=== PATIENT | male | born 1960 | race Native Hawaiian/Other Pacific Islander ===

== ENCOUNTER 2018-12-12 22:09 | Emergency (ER) | payer OTHER ==
[~2018-12-12] VITALS: Ht 180.3 cm; Wt 63.5 kg
[~2018-12-12 22:09] MED LIST: ALBU8HFA4; AMLO5TAB4; HYDR8TAB2; IRON; OMEP20CA4; PROM25TA15
--- NOTE | 2018-12-12 22:27 | NUR ---
Patient discharged to home in stable conditon. Written and verbal after care instructions given. Patient verbalizes understanding of instructions.
== END 2018-12-12 22:28 | disposition home or self-care (01) ==
LOC: ER 22:09
DX: Z48.01 Encounter for change or removal of surgical wound dressing (principal); L02.416 Cutaneous abscess of left lower limb; G89.29 Other chronic pain; Z88.5 Allergy status to narcotic agent; Z88.8 Allergy status to other drugs, medicaments and biological substances; Z79.899 Other long term (current) drug therapy
CPT/HCPCS: A4663

== ENCOUNTER 2019-03-28 23:56 | Emergency (ER) | payer OTHER ==
[~2019-03-28] VITALS: Ht 180.3 cm; Wt 58.1 kg
[~2019-03-28 23:56] MED LIST changes: -AMLO5TAB4; -HYDR8TAB2; +HYDR8TAB2 PO; -OMEP20CA4; +PROM25TA15 PO
[2019-03-29 00:41] LABS: BASOPHILS # (AUTO) 0.1 K/uL (0.0-8.0); BASOPHILS % (AUTO) 1.4 % (0.0-2.0); EOSINOPHILS # (AUTO) 0.2 K/uL (0.0-0.7); EOSINOPHILS % (AUTO) 3.7 % (0.0-7.0); HEMATOCRIT 30.3 % (36.7-47.1); HEMOGLOBIN 10.2 g/dL (12.5-16.3); LYMPHOCYTES # (AUTO) 1.2 K/uL (20.0-40.0); MEAN CORPUSCULAR HEMOGLOBIN 30.7 uug (23.8-33.4); MEAN CORPUSCULAR HGB CONC 34 g/dL (32.5-36.3); MEAN CORPUSCULAR VOLUME 91.4 fL (73.0-96.2); MONOCYTES # (AUTO) 0.5 K/uL (2.0-10.0); MONOCYTES % (AUTO) 10.2 % (0.0-11.0); NEUTROPHILS # (AUTO) 2.9 K/uL (1.8-8.9); NEUTROPHILS % (AUTO) 59.7 % (38.5-71.5); PLATELET COUNT (AUTO) 185 K/uL (152-348); RED BLOOD CELL COUNT(AUTO) 3.32 MIL/uL (4.06-5.63); WHITE BLOOD COUNT (AUTO) 4.8 K/uL (3.6-10.2)
[2019-03-29 00:47] LABS: *BILIRUBIN,URIN NEGATIVE (NEGATIVE); *CLARITY,URINE CLEAR (CLEAR); *COLOR,URINE YELLOW (YELLOW); *KETONES,URINE NEGATIVE (NEGATIVE); LEUKOCYTE ESTERASE ,URINE NEGATIVE (NEGATIVE); NITRITE, URINE NEGATIVE (NEGATIVE); PH,URINE 8.5 (5.0-8.0); UGLUCOSE NEGATIVE (NEGATIVE)
[2019-03-29 00:49] LABS: CREATININE 1.1 mg/dL (0.6-1.3); POTASSIUM 4.4 mmol/L (3.5-5.1)
[2019-03-29 00:53] LABS: *BLOOD, URINE TRACE (NEGATIVE)
[2019-03-29 00:56] LABS: BACTERIA,URINE NONE SEEN /HPF (NONE SEEN); SQUAMOUS EPITHELIAL CELL,UR FEW /HPF (NONE SEEN); WBC,URINE 0-3 /HPF (0-3)
[2019-03-29 01:01] LABS: BILIRUBIN,DIRECT 0.2 mg/dL (0.0-0.2); BILIRUBIN,TOTAL 0.4 mg/dL (0.2-1.0); TOTAL PROTEIN, SERUM 6.1 g/dL (6.4-8.2)
[2019-03-29] MEDS ORDERED: CALCIUM GLUCONATE 1 GM/10 ML VIAL IV ONE (01:22)
[2019-03-29] MEDS ORDERED: FUROSEMIDE 40 MG/4 ML VIAL ONE (01:22)
[2019-03-29] MEDS ORDERED: FUROSEMIDE 20 MG/2 ML VIAL IV ONE (01:30)
[2019-03-29] MEDS ORDERED: CALCIUM GLUCONATE IV 1 GM in IV DEXTROSE 5% 50 ML IV ONE (01:30)
--- NOTE | 2019-03-29 02:00 | NUR ---
Calcium Gluconate infusion finished at 0200. Medication infused well with no signs of infiltration.
--- NOTE | 2019-03-29 02:20 | NUR ---
Patient discharged to home in stable conditon. Written and verbal after care instructions given. Patient verbalizes understanding of instructions.
== END 2019-03-29 02:21 | disposition home or self-care (01) ==
LOC: ER 23:58
DX: R60.9 Edema, unspecified (principal); Z88.5 Allergy status to narcotic agent; Z88.8 Allergy status to other drugs, medicaments and biological substances; Z79.899 Other long term (current) drug therapy
CPT/HCPCS: 36415; 71045; 80048; 80076; 81001; 83880; 84484; 85025; 85730; 93005; 96365; 96375; 99284; J0610; J1940; J7060; 70030-TC; A4663

== ENCOUNTER 2021-07-13 14:44 | Inpatient (IN) | payer OTHER ==
[~2021-07-13] VITALS: Ht 172.7 cm; Wt 40.8 kg
[2021-07-13] MEDS ORDERED: LOPRESSOR (14:56)
[2021-07-13] MEDS ORDERED: METHADONE (14:56)
[2021-07-13] MEDS ORDERED: NEOMY/BACITRA/POLYMYXIN B OINT UD PACKET TP ONE ×2 (15:00→17:48)
[2021-07-13] MEDS ORDERED: IV NORMAL SALINE 1000 ML BAG IV ONE (15:00)
[2021-07-13] MEDS ORDERED: TDAP DIPH,PERTUSS,TET VAC/PF 0.5 ML DISP.SYRIN IM ONE ×2 (15:00→16:22)
[2021-07-13] MEDS ORDERED: DEXTROSE 50% 50 ML DISP.SYRIN IV ONE (15:15)
[2021-07-13 15:40] LABS: HEMATOCRIT 28.8 % (36.7-47.1); MEAN CORPUSCULAR HEMOGLOBIN 31.7 uug (23.8-33.4); MEAN CORPUSCULAR VOLUME 97.1 fL (73.0-96.2); PLATELET COUNT (AUTO) 152 K/uL (152-348)
--- NOTE | 2021-07-13 15:51 | NUR ---
CELESTE ROSALES, PT'S GRUPO, CALLED AND SAID THAT SHE WAS TRYING TO REACH HER FATHER EARLIER AND HE WOULDNT DELTA SYSTEM FREIGHT CAR CLEANER THE PHONE, SO SHE KNEW SOMETHING WAS WRONG, SHE CALLED THE COMMERCIAL MANAGER WHO CALLED [employer] AND THEY GOT INTO THE ROOM. PER PT DAUGHTER, PT HAD STROKE A YEAR AGO, WITHOUT NEURO DEFICIT BUT CHANGES IN PT'S COGNITIVE ABILITIES. PT DAUGHTER PHONE IS [phone].
[2021-07-13 15:54] LABS: CREATININE 3.4 mg/dL (0.6-1.3); ETHANOL < 3 MG/DL (0-0); POTASSIUM 2.9 mmol/L (3.5-5.1)
[2021-07-13 16:00] LABS: BILIRUBIN,DIRECT 0.8 mg/dL (0.0-0.2); BILIRUBIN,TOTAL 1.5 mg/dL (0.2-1.0)
[2021-07-13 16:08] LABS: THYROID STIMULATING HORMONE 4.373 mIU/mL (0.358-3.740)
[2021-07-13] MEDS ORDERED: CALCIUM CHLORIDE 1 GM/10 ML DISP.SYRIN IVP ONE ×2 (16:15→16:22)
[2021-07-13] MEDS ORDERED: IV D5W-0.9% NS 1000 ML BAG IV ONE (16:15)
[2021-07-13 16:37] LABS: CREATINE KINASE, TOTAL < 7 U/L (39-308)
[2021-07-13] MEDS ORDERED: ASPIRIN 325 MG TABLET PO ONE (16:45)
[2021-07-13] MEDS ORDERED: ASPIRIN 325 MG TABLET ONE (16:53)
[2021-07-13] MEDS ORDERED: POTASSIUM CHLORIDE 50 ML IV SCH (17:00)
[2021-07-13] MEDS ORDERED: POTASSIUM CHLORIDE 20 MEQ TAB.PRT.SR PO ONE (17:00)
[2021-07-13] MEDS ORDERED: POTASSIUM CHLORIDE 50 ML ONE (17:06)
[2021-07-13] MEDS ORDERED: POTASSIUM CHLORIDE 20 MEQ TAB.PRT.SR ONE (17:54)
--- NOTE | 2021-07-13 17:58 | NUR ---
Pt's daughter Tatianna ([phone]) called and spoke to the pt via telephone.
[2021-07-13] MEDS ORDERED: Z GUARD REMEDY PASTE 57 GM TUBE TOP PRN (18:30)
[2021-07-13] MEDS ORDERED: CALCIUM GLUCONATE IV 2 GM in IV DEXTROSE 5% 250 ML IV ONE (18:30)
[2021-07-13] MEDS ORDERED: SODIUM BICARBONATE 8.4% 50 MEQ/50 ML DISP.SYRIN IV ONE (18:30)
[2021-07-13] MEDS ORDERED: IV D5W-0.45% NS +20 KCL 1,000 ML IV PRN ×2 (18:30→20:30)
[2021-07-13] MEDS ORDERED: MAGNESIUM HYDROXIDE 30 ML LIQUID UDC PO PRN (18:30)
[2021-07-13] MEDS: MAGNESIUM SULFATE/D5W 100 ML IV SCH ×2 (18:30→19:30)
[2021-07-13] MEDS ORDERED: ONDANSETRON 4 MG/2 ML VIAL IV PRN (18:30)
--- NOTE | 2021-07-13 18:58 | NUR ---
edda from [facility] called and got clinical update. Dr. Vernon Diehl will call back and talk to er
--- NOTE | 2021-07-13 19:00 | NUR ---
pt had couple of hospital juices, no difficulty swallowing. pt able to use the urinal himself and was able to sit at the bed side chair to help me to clean his bed. pt very cooperative and appreciative.
--- NOTE | 2021-07-13 19:33 | NUR ---
pt co " muscle chest pain" and requesting some narcotic pain meds. Dr. Erwin agreed to give morphine.
[2021-07-13 19:35] LABS: LIPASE 113 U/L (73-393)
[2021-07-13 19:39] LABS: ACETAMINOPHEN < 2.0 ug/mL (10-30)
[2021-07-13] MEDS ORDERED: MORPHINE SULFATE 4 MG/1 ML DISP.SYRIN IV ONE ×2 (19:45→20:45)
[2021-07-13] MEDS ORDERED: MORPHINE SULFATE 4 MG/1 ML DISP.SYRIN ONE ×2 (19:46→20:51)
[2021-07-13 19:50] VITALS: BP 117/76
[2021-07-13 20:02] LABS: *BILIRUBIN,URIN NEGATIVE (NEGATIVE); *BLOOD, URINE 3+ (NEGATIVE); *CLARITY,URINE CLEAR (CLEAR); *COLOR,URINE YELLOW (YELLOW); *KETONES,URINE NEGATIVE (NEGATIVE); *UROBILINOGEN,URINE 0.2 E.U./dl (NORMAL); LEUKOCYTE ESTERASE ,URINE NEGATIVE (NEGATIVE); NITRITE, URINE NEGATIVE (NEGATIVE); UGLUCOSE NEGATIVE (NEGATIVE)
[2021-07-13 20:08] LABS: BACTERIA,URINE NONE SEEN /HPF (NONE SEEN); SQUAMOUS EPITHELIAL CELL,UR FEW /HPF (NONE SEEN); URINE AMORPHOUS URATE FEW /HPF
[2021-07-13 20:13] LABS: *AMPHETAMINE, URINE NEGATIVE (NEGATIVE); *CANNABINOID, URINE NEGATIVE (NEGATIVE); *COCCAINE, URINE NEGATIVE (NEGATIVE); *OPIATE, URINE NEGATIVE (NEGATIVE); *PHENCYCLIDINE SCREEN,URINE NEGATIVE (NEGATIVE)
[2021-07-13] MEDS ORDERED: IV NORMAL SALINE 500 ML IV ONE (20:30)
--- NOTE | 2021-07-13 22:00 | NUR ---
REPORT GIVEN YON ROTHMAN. BASSAM ADMISSION.
[2021-07-13] MEDS ORDERED: SODIUM BICARBONATE 8.4% 150 MEQ in IV D5W 1000ML 1,000 ML IV PRN (22:15)
--- NOTE | 2021-07-13 22:25 | NUR ---
PATIENT TAKEN BY NITESH GROVERLEACHER TO FLOOR IN A RNEY. ROOM 308.
--- NOTE | 2021-07-13 22:35 | NUR ---
Received patient from ER via [facility] accompanied by the Nursing [employer] and [employer]LE. Awake, alert and oriented x 3, very talkative, able to move and repositioned self in bed. Transferred from [facility] to bed with 3 people assist. Oriented to room, call light and TV remote. Routine admission care done. Plan of care initiated.
--- NOTE | 2021-07-13 23:50 | NUR ---
Received second Troponin result from lab 1.371, Rebecca Kaplan made aware with no new order.
[2021-07-14 00:30] VITALS: BP 111/66
[2021-07-14] MEDS ORDERED: SODIUM BICARBONATE 8.4% 50 MEQ/50 ML VIAL IV ONE (02:05)
[2021-07-14] MEDS: ACETAMINOPHEN 325 MG TABLET PO PRN ×2 (02:33→08:09)
[2021-07-14 04:10] VITALS: BP 104/63
[2021-07-14] MEDS ORDERED: HYDROCODONE/APAP 5-325MG TABLET PO PRN (04:30)
--- NOTE | 2021-07-14 04:55 | NUR ---
Patient complaint of generalized pain in scale of 8/10. Obtained order of Marshall, given as ordered and needed. Will monitor.
[2021-07-14 07:05] LABS: MEAN CORPUSCULAR HEMOGLOBIN 31.3 uug (23.8-33.4); MEAN CORPUSCULAR VOLUME 94.8 fL (73.0-96.2); PLATELET COUNT (AUTO) 115 K/uL (152-348)
[2021-07-14 08:00] VITALS: BP 91/42
--- NOTE | 2021-07-14 08:00 | NUR ---
AWAKE ALERT AND VERBALLY RESPONSIVE DENIES PAIN OR SOB, ON RA SATURATING 98% SR ON MONITOR
[2021-07-14] MEDS: PANTOPRAZOLE SODIUM 40 MG VIAL IV SCH (08:09)
[2021-07-14] MEDS: ASPIRIN 81 MG TAB.CHEW PO SCH (08:09)
[2021-07-14 08:18] LABS: HEMATOCRIT 24.6 % (36.7-47.1)
[2021-07-14] MEDS: SODIUM BICARBONATE 8.4% 150 MEQ in IV D5W 1000ML 1,000 ML IV SCH ×2 (09:39→21:14)
--- NOTE | 2021-07-14 11:46 | NUR ---
C/O DIFFICULTY BREATHING, CHECKED O2 SATURATION 98% ON RA, PATIENT SKIN WARM AND DRY ST ON MONITOR 103-108, DENIES CHEST PAIN. CLOSELY MONITORED
[2021-07-14 11:58] LABS: ALANINE AMINOTRANSFERASE 184 U/L (16-63); ALKALINE PHOSPHATASE 137 U/L (50-136); ASPARTATE AMINOTRANSFERASE 1672 U/L (15-37); BILIRUBIN,TOTAL 0.7 mg/dL (0.2-1.0); CARBON DIOXIDE 18 mmol/L (21-32); CHLORIDE 104 mmol/L (98-107); CHOLESTEROL 90 mg/dL (<200); CREATININE 3.9 mg/dL (0.6-1.3); GLUCOSE 130 mg/dL (74-106); HDL CHOLESTEROL 52 mg/dL (40-60); PHOSPHOROUS 7.6 mg/dL (2.5-4.9); POTASSIUM 3.6 mmol/L (3.5-5.1); TOTAL PROTEIN, SERUM 6.4 g/dL (6.4-8.2); TRIGLYCERIDES 120 MG/DL (30-150); UREA NITROGEN, BLOOD 19 mg/dL (7-18)
[2021-07-14 12:00] VITALS: BP 128/59
[2021-07-14 12:09] LABS: MAGNESIUM 1.1 mg/dL (1.8-2.4)
[2021-07-14] MEDS ORDERED: CALCIUM GLUCONATE IV 2 GM in IV NORMAL SALINE 100 ML IV ONE (12:45)
[2021-07-14] MEDS: MAGNESIUM SULFATE/D5W 100 ML IV SCH ×4 (13:03→17:06)
--- NOTE | 2021-07-14 13:31 | NUR ---
C/O CP 07/03 ST 108 ON MONITOR BP 128/60 DEONNA NIX AROUND WITH NTG ORDER
[2021-07-14] MEDS: NITROGLYCERIN 0.4 MG/TAB BOTTLE SL PRN ×2 (13:39→22:16)
[2021-07-14 14:16] LABS: BILIRUBIN,DIRECT 0.4 mg/dL (0.0-0.2)
[2021-07-14 14:17] LABS: LIPASE 134 U/L (73-393)
[2021-07-14] MEDS: CEFTRIAXONE 1 G in IV DEXTROSE 5% 50 ML IV SCH (14:22)
[2021-07-14 16:00] VITALS: BP 149/68
[2021-07-14] MEDS: HYDROCODONE/APAP 5-325MG TABLET PO PRN ×2 (17:06→21:17)
--- NOTE | 2021-07-14 19:00 | NUR ---
RECD PT IN BED ,ALERT AND ORIENTED,VITAL SIGNS TAKEN AND RECORDED.ON TELE SR /ST102,
--- NOTE | 2021-07-14 19:30 | NUR ---
WENT OFF THE FLOOR TO RADI[facility] FOR CT SCAN OF ABDOMEN, PER W/C. ,ACCOMPANIED BY RAD[facility]TE[facility]
[2021-07-14 20:15] VITALS: BP 105/62
--- NOTE | 2021-07-14 20:30 | NUR ---
BACK FR RADIOLOGY DEPT, IVF INFUSING FAIRLY WELL, PT GOT UP TO GO TO BR AND REINFORCEMENT OF SAFETY MEASURES INSTRUCTED AND EMPHASIZED. KEPT DRY AND CLEAN AFTER BM.
--- NOTE | 2021-07-14 22:00 | NUR ---
MEDICATED FOR C/O CHEST PAIN , STAT EKG DONE AND RESULTS RELAYED TO DR. HAMPTON, TELE READING HAS BEEN 115-130 SINUS R/ S TACH, MONITOR CLOSELY FOR ANY CHANGE IN CONDITION. NO NEW ORDERS RECD.
[2021-07-15] VITALS (10 sets, daily range): BP systolic 102–151; BP diastolic 52–75
--- NOTE | 2021-07-15 | NUR ---
MIDLINE ON IRENE PATENT,PERIPHERAL IV LINE FUNCTIONING WELL.PT EASILY GETS AGITATED, HS CARE DONE, NEEDS ATTENED TO.,CALL LITE W/I REACH
[2021-07-15] MEDS: HYDROCODONE/APAP 5-325MG TABLET PO PRN ×2 (01:22→07:38)
[2021-07-15 06:43] LABS: MEAN CORPUSCULAR HEMOGLOBIN 32.6 uug (23.8-33.4); MEAN CORPUSCULAR VOLUME 94.2 fL (73.0-96.2); PLATELET COUNT (AUTO) 107 K/uL (152-348)
[2021-07-15 07:07] LABS: HEMATOCRIT 21.4 % (36.7-47.1)
[2021-07-15 07:22] LABS: BILIRUBIN,TOTAL 0.6 mg/dL (0.2-1.0); CREATININE 3.9 mg/dL (0.6-1.3); TOTAL PROTEIN, SERUM 6.1 g/dL (6.4-8.2)
[2021-07-15 07:25] LABS: POTASSIUM 2.4 mmol/L (3.5-5.1)
[2021-07-15] MEDS: PANTOPRAZOLE SODIUM 40 MG VIAL IV SCH (07:38)
[2021-07-15] MEDS: ASPIRIN 81 MG TAB.CHEW PO SCH (07:38)
--- NOTE | 2021-07-15 07:45 | NUR ---
PATIENT AWAKE ALERT AND ORIENTED X3, DENIES SOB BUT ON AND OFF CHEST PAIN RELIEVED WITH NORCO. PATIENT ON CONTINUOUS O2 AT 2L NC. ST AT A RATE 120-135. PATIENT IS CLOSELY MONITORED UNDER BASSAM
[2021-07-15] MEDS: POTASSIUM CHLORIDE 20 MEQ TAB.PRT.SR PO SCH ×4 (08:04→13:50)
[2021-07-15 08:49] LABS: *BILIRUBIN,URIN NEGATIVE (NEGATIVE); *BLOOD, URINE 3+ (NEGATIVE); *COLOR,URINE YELLOW (YELLOW); *KETONES,URINE NEGATIVE (NEGATIVE); *UROBILINOGEN,URINE 0.2 E.U./dl (NORMAL); LEUKOCYTE ESTERASE ,URINE NEGATIVE (NEGATIVE); NITRITE, URINE NEGATIVE (NEGATIVE); PH,URINE 5.5 (5.0-8.0); UGLUCOSE NEGATIVE (NEGATIVE)
[2021-07-15 08:52] LABS: *CLARITY,URINE SLIGHTLY CLOUDY (CLEAR)
[2021-07-15 09:38] LABS: COARSE GRANULAR CASTS,URINE 0-3 /LPF; MUCUS,URINE FEW /LPF (0-FEW)
--- NOTE | 2021-07-15 09:39 | NUR ---
SEEN BY PATIENT ASSISTANT DR AVELAR FOR CONSULT SEE NOTES. FOR VQ SCAN TO R/O PE
[2021-07-15 09:40] LABS: BACTERIA,URINE NONE SEEN /HPF (NONE SEEN); SQUAMOUS EPITHELIAL CELL,UR FEW /HPF (NONE SEEN); WBC,URINE 0-3 /HPF (0-3)
[2021-07-15 09:41] LABS: RBC,URINE 0-3 /HPF (0-3)
[2021-07-15 10:01] LABS: *CREATININE,URINE 134.4 mg/dL (30-125); *URINE TOTAL PROTEIN RANDOM 195.8 mg/dL (<150/24HR)
--- NOTE | 2021-07-15 13:26 | NUR ---
PATIENT COMPLETED LUNG SCAN AWAITING RESULTS
[2021-07-15] MEDS: CEFTRIAXONE 1 G in IV DEXTROSE 5% 50 ML IV SCH (14:46)
[2021-07-15] MEDS: MORPHINE SULFATE 2 MG/1 ML DISP.SYRIN IV PRN ×2 (16:18→22:01)
[2021-07-15] MEDS ORDERED: MORPHINE SULFATE 2 MG/1 ML DISP.SYRIN IV ONE (18:00)
[2021-07-15] MEDS: ACETAMINOPHEN 325 MG TABLET PO PRN (18:38)
--- NOTE | 2021-07-15 18:40 | NUR ---
. CLOSELY MONITOREDBLOOD TRANSFUSION STARTED PER PROTOCOL
--- NOTE | 2021-07-15 18:50 | NUR ---
NO SIGNS OF BLOOD TRANSFUSION REACTION NOTED SR ON MONITOR CONTINUE CLOSE MONITORING
--- NOTE | 2021-07-15 19:00 | NUR ---
PATIENT ALERT ORIENTED, NO SOB NO CHEST PAIN, ON ONGOING BLOOD TRANSFUSION, NO S/S OF ADVERSE REACTION NOTED, AFEBRILE, PATIENT ON TELE MONITOR RHYTHM SINUS TACHY. PATIENT HAS MILD GEN BODY PAIN, CONT TO MONITOR.
--- NOTE | 2021-07-15 21:00 | NUR ---
TRANSFUSED 1 UNIT PRBC TOLERATE WELL NO SOB NO CHEST CONGESTION NO COUGHING NOTED. COMPLAIN GEN BODY PAIN WILL MEDICATED ORDERED. CONT TO MONITOR.
[2021-07-16] VITALS: BP 125/70
[2021-07-16 04:09] VITALS: BP 109/58
--- NOTE | 2021-07-16 05:48 | NUR ---
PATIENT ASLEEP BUT AROUSABLE, NO SOB NO CHEST PAIN, PATIENT TELE MONITOR SINUS RYTHM, CONT ON PAIN MANAGEMENT FOR GENERALIZED BODY PAIN. PATIENT HAS MULTIPLE SMALL SOFT BM, WITH NORMAL ODOR OF BM. PATIENT WAS MONITORED CLOSELY BUT FORGET TO ASK FOR HELP, GETS OUT OF BED WITHOUT CALL FOR HELP. CALL LIGHT WITHIN REACH.
[2021-07-16 06:37] LABS: HEMATOCRIT 25.3 % (36.7-47.1); MEAN CORPUSCULAR HEMOGLOBIN 32.3 uug (23.8-33.4); MEAN CORPUSCULAR VOLUME 94.2 fL (73.0-96.2); PLATELET COUNT (AUTO) 85 K/uL (152-348)
[2021-07-16 06:47] LABS: CREATININE 3.3 mg/dL (0.6-1.3)
[2021-07-16 06:59] LABS: POTASSIUM 2.7 mmol/L (3.5-5.1)
[2021-07-16 07:30] VITALS: BP 95/59
[2021-07-16] MEDS: ENSURE CLEAR 240 ML LIQUID (MIX BERRY) PO SCH (08:00)
--- NOTE | 2021-07-16 08:00 | NUR ---
Discussed plan of care with patient re: fall precaution and staying NPO status for his test of MRCP. Pt agreeable with plan of care.
[2021-07-16] MEDS: PANTOPRAZOLE SODIUM 40 MG VIAL IV SCH (08:22)
[2021-07-16] MEDS: METHADONE HCL 10 MG TABLET PO SCH (08:29)
[2021-07-16] MEDS ORDERED: ASPIRIN 81 MG TAB.CHEW PO SCH (09:00)
[2021-07-16] MEDS ORDERED: MAGNESIUM SULFATE/D5W 100 ML IV SCH (09:30)
[2021-07-16] MEDS: HYDROCODONE/APAP 5-325MG TABLET PO PRN ×2 (10:42→17:48)
[2021-07-16] MEDS: IV 1/2 NS + KCL 20 MEQ BAG 1,000 ML IV PRN (10:47)
[2021-07-16 11:25] VITALS: BP 109/63
--- NOTE | 2021-07-16 11:43 | NUR ---
WOUND CARE CONSULT: PT PRESENTS WITH MULTIPLE AREAS OF SKIN DISCOLORATION, LEFT FOREHEAD DRY WOUND/ESCHAR AND RT LOWER LEG ABRASION, ALL PRESENT ON ADMISSION. SURGICAL CONSULT REQUESTED FROM DR SIMIN HAMMOND FOR FOREHEAD WOUND. RECOMMENDATIONS MADE FOR SKIN PROTECTION AND RT LOWER LEG WOUND. DISCUSSED WITH NURSING STAFF. MD IN AGREEMENT WITH PLAN OF CARE.
[2021-07-16] MEDS ORDERED: CEphaleXIN 500 MG CAPSULE PO SCH (12:45)
--- NOTE | 2021-07-16 13:11 | NUR ---
Pt on his way to [facility] for [facility]. Will check back in 2hrs, if not back will do doppler tmrw AM
[2021-07-16] MEDS: CEphaleXIN 500 MG CAPSULE PO SCH ×2 (14:11→21:03)
[2021-07-16] MEDS: ACETAMINOPHEN 325 MG TABLET PO PRN (14:20)
--- NOTE | 2021-07-16 14:30 | NUR ---
Pt received back from [facility]. NO result noted on computer. Pt is in no acute distress. Call light is within reach.
[2021-07-16 15:15] LABS: LYMPHOCYTES % (MANUAL) 30 % (20-40); MONOCYTES % (MANUAL) 10 % (2-10); NEUTROPHILS % (MANUAL) 60 % (42-75)
[2021-07-16] MEDS ORDERED: KETOROLAC TROMETHAMINE 15 MG INJ IVP PRN (15:45)
[2021-07-16 16:09] VITALS: BP 90/59
[2021-07-16] MEDS ORDERED: CALCIUM GLUCONATE IV 2 GM in IV NORMAL SALINE 100 ML IV ONE (16:30)
[2021-07-16] MEDS ORDERED: KETOROLAC TROMETHAMINE 15 MG INJ IM PRN (17:45)
[2021-07-16 20:00] VITALS: BP 118/67
[2021-07-16] MEDS: POTASSIUM CHLORIDE 50 ML IV SCH ×2 (21:41→22:46)
[2021-07-17] MEDS: POTASSIUM CHLORIDE 50 ML IV SCH ×4 (00:08→09:36)
[2021-07-17] MEDS: HYDROCODONE/APAP 5-325MG TABLET PO PRN ×3 (00:35→20:08)
[2021-07-17] MEDS: CEphaleXIN 500 MG CAPSULE PO SCH ×3 (05:31→21:52)
[2021-07-17 06:41] LABS: HEMATOCRIT 24.5 % (36.7-47.1); MEAN CORPUSCULAR HEMOGLOBIN 32.1 uug (23.8-33.4); MEAN CORPUSCULAR VOLUME 98.7 fL (73.0-96.2); PLATELET COUNT (AUTO) 83 K/uL (152-348)
[2021-07-17 06:59] LABS: BILIRUBIN,DIRECT 0.2 mg/dL (0.0-0.2); BILIRUBIN,TOTAL 0.4 mg/dL (0.2-1.0); CREATININE 2.3 mg/dL (0.6-1.3); MAGNESIUM 1.3 mg/dL (1.8-2.4); POTASSIUM 3.3 mmol/L (3.5-5.1); TOTAL PROTEIN, SERUM 5.4 g/dL (6.4-8.2)
--- NOTE | 2021-07-17 08:00 | NUR ---
PATIENT AWAKE ALERT AND RESTING WELL IN BED WITH O2 AT 2L NC SATURATING 98% SR ON MONITOR
[2021-07-17] MEDS ORDERED: POTASSIUM PHOSPHATE MM 15 MMOL in IV NORMAL SALINE 250 ML IV ONE (08:15)
[2021-07-17 08:29] VITALS: BP 116/64
[2021-07-17] MEDS: ENSURE CLEAR 240 ML LIQUID (MIX BERRY) PO SCH (08:59)
[2021-07-17] MEDS: PANTOPRAZOLE SODIUM 40 MG VIAL IV SCH (08:59)
[2021-07-17] MEDS: METHADONE HCL 10 MG TABLET PO SCH (09:00)
--- NOTE | 2021-07-17 09:30 | NUR ---
NOTE: DR HAMPTON NOTED ABNORMAL LABS WITH REPLACEMENT ORDER. SEE NOTES
--- NOTE | 2021-07-17 10:39 | NUR ---
SEEN BY DR HAMPTON PATIENT STATUS CHANGED TO TELE
--- NOTE | 2021-07-17 11:00 | NUR ---
Received patient mid shift. No sign of distress noted. Patient is sitting up in bed watching television. He complains of pain "all over his body". Safety precautions are in place. Will continue to monitor.
[2021-07-17 11:07] LABS: CALCITRIOL VIT D,1,25 DIHYDROX 42.1 pg/mL (19.9-79.3)
[2021-07-17 11:53] VITALS: BP 114/67
[2021-07-17] MEDS: MAGNESIUM SULFATE/D5W 100 ML IV SCH ×4 (12:12→17:27)
--- NOTE | 2021-07-17 14:00 | NUR ---
RECIEVED Pt mid shift. PT is in no acute distress.
[2021-07-17 15:04] VITALS: BP 118/63
[2021-07-17] MEDS: POTASSIUM PHOSPHATE MM 7.5 MMOL in IV NORMAL SALINE 97.5 ML IV SCH ×2 (15:46→18:30)
[2021-07-17 20:15] VITALS: BP 122/80
[2021-07-17] MEDS: IV 1/2 NS + KCL 20 MEQ BAG 1,000 ML IV PRN (20:33)
--- NOTE | 2021-07-17 21:26 | NUR ---
Pt received in stable condition. Able to make needs known. On 2L O2, tolerating well. IV site intact and patent, running ordered fluids. Report given to STEPHAN Kirk to take over care.
--- NOTE | 2021-07-17 21:30 | NUR ---
Received pt from Tamie ROTHMAN. Pt is alert and oriented, verbally responsive, able to make needs known. No signs of distress. IVF infusing well. NSR on tele. Safety measures initiated, call light and belongings within reach.
[2021-07-18] VITALS: BP 126/76
[2021-07-18] MEDS: HYDROCODONE/APAP 5-325MG TABLET PO PRN ×2 (03:12→09:13)
[2021-07-18 04:10] VITALS: BP 114/68
[2021-07-18] MEDS: CEphaleXIN 500 MG CAPSULE PO SCH ×3 (05:21→21:19)
[2021-07-18 06:06] LABS: HEMATOCRIT 24.5 % (36.7-47.1); MEAN CORPUSCULAR HEMOGLOBIN 32.1 uug (23.8-33.4); MEAN CORPUSCULAR VOLUME 96.3 fL (73.0-96.2); PLATELET COUNT (AUTO) 107 K/uL (152-348)
[2021-07-18 06:30] LABS: BILIRUBIN,TOTAL 0.5 mg/dL (0.2-1.0); CREATININE 1.8 mg/dL (0.6-1.3); MAGNESIUM 1.6 mg/dL (1.8-2.4); PHOSPHOROUS 1.8 mg/dL (2.5-4.9); POTASSIUM 4.4 mmol/L (3.5-5.1); TOTAL PROTEIN, SERUM 5.4 g/dL (6.4-8.2)
--- NOTE | 2021-07-18 06:40 | NUR ---
Pain medications administered as ordered. Tolerated medications well. Safety measures maintained at all times. No significant change in condition noted through the night. Still no stool sample for stool OB. Pt aware we need sample. Will endorse to incoming nurse.
[2021-07-18] MEDS: PANTOPRAZOLE SODIUM 40 MG VIAL IV SCH (09:04)
[2021-07-18] MEDS: ENSURE CLEAR 240 ML LIQUID (MIX BERRY) PO SCH (09:11)
[2021-07-18] MEDS: MAGNESIUM SULFATE/D5W 100 ML IV SCH ×2 (09:12→10:09)
[2021-07-18 09:16] LABS: ABG BASE EXCESS -3.4 mmol/L; ABG HCO3 20.7 mmol/L; ABG PCO2 34.1 mmHg (35.0-45.0); ABG PH 7.401 (7.350-7.450); ABG PO2 92.9 mmHg (75.0-100.0); ABG SITE RIGHT RADIAL; ABG TOTAL HEMOGLOBIN 12.1 G/dL (13.5-18.0); COHb 1.6 % (0.5-1.5); MetHb 0.3 % (0.0-1.5); O2Hb 95.3 % (94.0-97.0); VENT MODE ROOM AIR
[2021-07-18] MEDS: METHADONE HCL 10 MG TABLET PO SCH (09:21)
[2021-07-18 11:53] VITALS: BP 111/75
[2021-07-18] MEDS: IV 1/2 NS + KCL 20 MEQ BAG 1,000 ML IV PRN (14:03)
[2021-07-18 14:23] LABS: EOSINOPHILS % (MANUAL) 2 % (0-8); LYMPHOCYTES % (MANUAL) 18 % (20-40); MONOCYTES % (MANUAL) 16 % (2-10); NEUTROPHILS % (MANUAL) 64 % (42-75)
[2021-07-18 15:15] LABS: *OCCULT BLOOD STOOL POSITIVE (NEGATIVE)
[2021-07-18 16:15] VITALS: BP 122/68
[2021-07-18] MEDS: NEOMY/BACITRAC/POLYMI OINT 28.35 GM TUBE TOP SCH (17:18)
[2021-07-18] MEDS ORDERED: NEUTRA PHOS PACKET PO ONE (18:30)
[2021-07-18 20:41] VITALS: BP 133/72
[2021-07-19] MEDS: HYDROCODONE/APAP 5-325MG TABLET PO PRN ×3 (01:02→20:33)
[2021-07-19 04:32] VITALS: BP 112/62
--- NOTE | 2021-07-19 04:57 | NUR ---
Pt slept throughout the night. Denies SOB at this time, on RA. IV site intact running ordered fluids. Safety and comfort provided. No other issues or concerns at this time, will endorse to day shift.
[2021-07-19] MEDS: CEphaleXIN 500 MG CAPSULE PO SCH ×3 (06:12→21:46)
[2021-07-19 06:18] LABS: HEMATOCRIT 22.4 % (36.7-47.1); MEAN CORPUSCULAR HEMOGLOBIN 32.2 uug (23.8-33.4); MEAN CORPUSCULAR VOLUME 97.1 fL (73.0-96.2); PLATELET COUNT (AUTO) 135 K/uL (152-348)
--- NOTE | 2021-07-19 06:30 | NUR ---
Critical hemoglobin called in at 7.4. Will endorse to electron microscopist and day shift nurse.
[2021-07-19 06:35] LABS: BILIRUBIN,TOTAL 0.4 mg/dL (0.2-1.0); CREATININE 1.4 mg/dL (0.6-1.3); PHOSPHOROUS 1.7 mg/dL (2.5-4.9); POTASSIUM 4.8 mmol/L (3.5-5.1); TOTAL PROTEIN, SERUM 5.2 g/dL (6.4-8.2)
[2021-07-19 06:40] LABS: MAGNESIUM 1.2 mg/dL (1.8-2.4)
--- NOTE | 2021-07-19 07:30 | NUR ---
AWAKE ALERT AND VERBALLY RESPONSIVE DENIES CHEST PAIN OR SOB AWAITING AM LABS FOR FURTHER TX.
[2021-07-19] MEDS: MAGNESIUM SULFATE/D5W 100 ML IV SCH ×4 (07:50→12:51)
[2021-07-19 08:02] VITALS: BP 126/62
[2021-07-19] MEDS: PANTOPRAZOLE SODIUM 40 MG VIAL IV SCH (08:42)
[2021-07-19] MEDS: METHADONE HCL 10 MG TABLET PO SCH (08:42)
[2021-07-19] MEDS: ENSURE ENLIVE (VAN) 240 ML LIQUID PO SCH (08:43)
[2021-07-19] MEDS: NEOMY/BACITRAC/POLYMI OINT 28.35 GM TUBE TOP SCH (08:44)
[2021-07-19] MEDS ORDERED: IV NORMAL SALINE 500 ML IV ONE (10:30)
[2021-07-19] MEDS ORDERED: IOHEXOL 350 100 ML INFUS..BTL ONE (10:57)
[2021-07-19] MEDS ORDERED: SWABABLE VALVE TRANSFER SET EA MC ONE (10:57)
[2021-07-19] MEDS ORDERED: IV NORMAL SALINE 250 ML IV ONE (10:57)
--- NOTE | 2021-07-19 11:25 | NUR ---
PATIENT WENT TO [facility] FOR CTA CHEST VIA WHEELCHAIR
--- NOTE | 2021-07-19 12:00 | NUR ---
SEEN BY HOSPITALIST NOTED ABNORMAL LABS AND REPLACED. PATIENT REMAINS STABLE AWAITING RESULTS OF CTA CHEST
[2021-07-19 12:01] VITALS: BP 124/75
[2021-07-19 14:32] LABS: *PEU PROTEIN, TOTAL, UR 69.1
[2021-07-19 14:43] LABS: CRYPTOCOCCUS AG TITER, SERUM Negative
[2021-07-19 14:44] LABS: COCCIDIOIDES CF SERUM Negative; CRYPTOCOCCUS AB, SERUM Negative
[2021-07-19 15:14] LABS: EOSINOPHILS % (MANUAL) 2 % (0-8); LYMPHOCYTES % (MANUAL) 27 % (20-40); MONOCYTES % (MANUAL) 20 % (2-10); NEUTROPHILS % (MANUAL) 51 % (42-75)
[2021-07-19 16:26] VITALS: BP 118/77
[2021-07-19] MEDS ORDERED: SODIUM PHOSPHATE MM 15 MMOL in IV NORMAL SALINE 250 ML IV ONE (16:30)
--- NOTE | 2021-07-19 18:17 | NUR ---
PLAN DC IN AM IF STABLE SEE HOSPITALIST NOTES
--- NOTE | 2021-07-19 19:00 | NUR ---
RECD PT IN BED, AWAKE, ALERT AND ORIENTED, NO ACUTE DISTRESS NOTED.VITAL SIGNS TAKEN AND RECRDED. NEEDS ATTENDED TO.
[2021-07-19 20:08] VITALS: BP 135/70
--- NOTE | 2021-07-20 03:55 | NUR ---
slept at short intervals. voided freely well,
[2021-07-20 04:15] VITALS: BP 121/78
[2021-07-20] MEDS: CEphaleXIN 500 MG CAPSULE PO SCH (06:00)
[2021-07-20] MEDS: HYDROCODONE/APAP 5-325MG TABLET PO PRN (06:02)
--- NOTE | 2021-07-20 06:09 | NUR ---
ENDORSED TO AM SHIFT IN APPARENTLY FAIR CONDITION,RESTING IN BED.
[2021-07-20 06:48] LABS: HEMATOCRIT 23.4 % (36.7-47.1); MEAN CORPUSCULAR HEMOGLOBIN 32.6 uug (23.8-33.4); MEAN CORPUSCULAR VOLUME 98.6 fL (73.0-96.2); PLATELET COUNT (AUTO) 188 K/uL (152-348)
[2021-07-20 07:17] LABS: CREATININE 1.3 mg/dL (0.6-1.3); MAGNESIUM 1.8 mg/dL (1.8-2.4); PHOSPHOROUS 3.1 mg/dL (2.5-4.9); POTASSIUM 5.3 mmol/L (3.5-5.1)
[2021-07-20] MEDS ORDERED: SODIUM POLYSTYRENE SULFONATE 15 G/60 ML LIQUID UDC PO ONE (08:30)
[2021-07-20] MEDS: PANTOPRAZOLE SODIUM 40 MG VIAL IV SCH (08:50)
[2021-07-20] MEDS: METHADONE HCL 10 MG TABLET PO SCH (08:53)
[2021-07-20] MEDS: NEOMY/BACITRAC/POLYMI OINT 28.35 GM TUBE TOP SCH (08:54)
[2021-07-20] MEDS: ENSURE ENLIVE (VAN) 240 ML LIQUID PO SCH (08:54)
[2021-07-20 09:01] LABS: BILIRUBIN,DIRECT 0.1 mg/dL (0.0-0.2); BILIRUBIN,TOTAL 0.3 mg/dL (0.2-1.0); TOTAL PROTEIN, SERUM 5.5 g/dL (6.4-8.2)
[2021-07-20 11:02] VITALS: BP 103/54
[2021-07-20] MEDS ORDERED: CEPH500C2 PO (13:11)
[2021-07-20] MEDS ORDERED: ASPI-612 PO (13:11)
[2021-07-20 13:49] LABS: NEUTROPHILS % (MANUAL) 55 % (42-75)
[2021-07-20 13:50] LABS: EOSINOPHILS % (MANUAL) 2 % (0-8); LYMPHOCYTES % (MANUAL) 26 % (20-40); MONOCYTES % (MANUAL) 17 % (2-10)
[2021-07-20 15:34] VITALS: BP 130/79
--- NOTE | 2021-07-20 17:30 | NUR ---
Discharged patient to home with Home Health. Patient AOx4. On room air. No signs of acute distress. Discharge instructions given and discharge documents signed. Prescription given to patient. Belongings accounted for and belongings list signed. Wound pictures taken. IV access removed. ID armband removed. Patient taken to lobby via wheelchair. Patient left hospital via Uber arranged by patient daughter.
== END 2021-07-20 17:20 | disposition home health service (06) | DRG 469 ==
LOC: ER 14:45 → TELE-TD3 22:07 → TELE3 07-17 09:10 → MEDSURG3 07-18 11:08
PROVIDERS: ADMIT Nurse Practitioner Acute Care; ATTEND Nurse Practitioner Acute Care
PROC: B547ZZA Ultrasonography of Left Subclavian Vein, Guidance (ICD-10-PCS; principal; 2021-07-13)
PROC: 05H633Z Insertion of Infusion Device into Left Subclavian Vein, Percutaneous Approach (ICD-10-PCS; principal; 2021-07-13)
PROC: 30233N1 Transfusion of Nonautologous Red Blood Cells into Peripheral Vein, Percutaneous Approach (ICD-10-PCS; 2021-07-15)
DX: N17.0 Acute kidney failure with tubular necrosis (principal); J96.01 Acute respiratory failure with hypoxia; K72.00 Acute and subacute hepatic failure without coma; G92 Toxic encephalopathy; D61.818 Other pancytopenia; R64 Cachexia; E46 Unspecified protein-calorie malnutrition; K83.8 Other specified diseases of biliary tract; I21.A1 Myocardial infarction type 2; K92.2 Gastrointestinal hemorrhage, unspecified; D62 Acute posthemorrhagic anemia; E83.51 Hypocalcemia; E87.0 Hyperosmolality and hypernatremia; E87.2 Acidosis; N39.0 Urinary tract infection, site not specified; E16.2 Hypoglycemia, unspecified; E83.42 Hypomagnesemia; I10 Essential (primary) hypertension; G89.4 Chronic pain syndrome; J45.909 Unspecified asthma, uncomplicated; Z79.891 Long term (current) use of opiate analgesic; Z86.73 Personal history of transient ischemic attack (TIA), and cerebral infarction without residual deficits; E87.6 Hypokalemia; Z91.81 History of falling; R74.01 Elevation of levels of liver transaminase levels; D72.829 Elevated white blood cell count, unspecified; Z68.1 Body mass index [BMI] 19.9 or less, adult; Z59.0 Homelessness; R91.1 Solitary pulmonary nodule; N18.9 Chronic kidney disease, unspecified; I12.9 Hypertensive chronic kidney disease with stage 1 through stage 4 chronic kidney disease, or unspecified chronic kidney disease; K86.1 Other chronic pancreatitis; S40.022A Contusion of left upper arm, initial encounter; S40.021A Contusion of right upper arm, initial encounter; S80.12XA Contusion of left lower leg, initial encounter; S80.11XA Contusion of right lower leg, initial encounter; S05.12XA Contusion of eyeball and orbital tissues, left eye, initial encounter; S05.11XA Contusion of eyeball and orbital tissues, right eye, initial encounter; W19.XXXA Unspecified fall, initial encounter; Y93.9 Activity, unspecified; Y92.89 Other specified places as the place of occurrence of the external cause; J98.11 Atelectasis; W34.00XS Accidental discharge from unspecified firearms or gun, sequela; Z20.822 Contact with and (suspected) exposure to COVID-19
CPT/HCPCS: 36415; 36600; 70030-TC; 70450; 70480; 71045; 71275; 72125; 74150; 74181; 76770; 78580; 82652; 83605; 83690; 83735; 83970; 84100; 84156; 84166; 84300; 84443; 85025; 85730; 86480; 86850; 86900; 86901; 86920; 87077; 87086; 87328; 90715; 93005; 93307; A4663; A6209; A9540; C9113; G0378; G0480; J0610; J0696; J2270; J2405; J3475; J3480; J3490; J7040; J7042; J7050; J7060; J7070; P9016; P9021; Q9967